=== PATIENT | female | born 1955 | race African-American/Black ===

== ENCOUNTER 2022-07-28 04:10 | Inpatient (IN) | payer MEDICARE, MEDICAID ==
[2022-07-28] VITALS (22 sets, daily range): BP systolic 112–151; BP diastolic 42–85
[~2022-07-28] VITALS: Ht 167.6 cm; Wt 125.2 kg
[2022-07-28] MEDS ORDERED: ONDANSETRON HCL 4MG/2ML INJ IV STA (08:41)
[2022-07-28] MEDS ORDERED: FAMOTIDINE 20MG/2ML VIAL IV STA (08:41)
[2022-07-28 09:43] LABS: BASOPHILS % 0.3 % (0.0-2.0); HEMATOCRIT. 36.6 % (36.0-48.0); LYMPHOCYTES % 23.7 % (20.0-50.0); MEAN CORPUSCULAR HEMOGLOBIN 27.4 pg (28.0-32.0); MEAN CORPUSCULAR VOLUME 83.8 fL (81.0-99.0); MEAN PLATELET VOLUME 7.9 fl (7.4-10.4); MONOCYTES % 5.9 % (2.0-8.0); NEUTROPHILS % 70.1 % (40.0-76.0); PLATELET 203 x1000/uL (130-400); RED BLOOD CELL COUNT 4.37 mill/uL (4.2-5.4); RED CELL DISTRIBUTION WIDTH 15.7 % (11.6-14.6)
[2022-07-28 09:48] LABS: CHLORIDE 106 mEq/L (98-107)
[2022-07-28 10:01] LABS: PROTHROMBIN TIME 10.9 sec (9.6-11.0)
[2022-07-28] MEDS ORDERED: LEVETIRACETAM 500MG PREMIX 100 ML IV ONE (10:45)
[2022-07-28] MEDS: DEXT 5%/LACTATED RINGERS 1,000 ML IV SCH ×2 (11:00→21:38)
[2022-07-28] MEDS ORDERED: NICARDIPINE 40MG/200ML PREMIX 200 ML IV STA (11:21)
[2022-07-28] MEDS ORDERED: MORPHINE SULFATE 2 MG/ML CPJ (NOT FOR IM USE) IV NR (11:30)
[2022-07-28] MEDS ORDERED: MORPHINE SULFATE 2 MG/ML CPJ (NOT FOR IM USE) IV PRN ×3 (11:30→22:00)
[2022-07-28] MEDS ORDERED: NICARDIPINE 50 MG in SODIUM CHLORIDE 0.9% 230 ML IV PRN (11:30)
[2022-07-28] MEDS ORDERED: DEXT 5%/LACTATED RINGERS 1,000 ML IV SCH (11:45)
[2022-07-28] MEDS ORDERED: NALOXONE HCL 0.4MG/ML VIAL IV PRN (11:45)
[2022-07-28] MEDS: PANTOPRAZOLE SODIUM 40 MG/VIAL IV SCH (11:50)
[2022-07-28] MEDS ORDERED: NICARDIPINE 100 MG in SODIUM CHLORIDE 0.9% 60 ML IV PRN (12:00)
[2022-07-28] MEDS ORDERED: LEVETIRACETAM 500MG PREMIX 100 ML IV SCH ×2 (17:00→21:00)
[2022-07-28] MEDS: HYDROCODONE/ACETAMINOPHEN 5/325MG TABLET PO PRN (18:25)
[2022-07-28] MEDS: NICARDIPINE 100 MG in SODIUM CHLORIDE 0.9% 60 ML IV PRN (19:58)
[2022-07-28] MEDS: ONDANSETRON HCL 4MG/2ML INJ IV PRN (22:05)
[2022-07-28] MEDS: LEVETIRACETAM 500MG PREMIX 100 ML IV SCH (22:23)
[2022-07-29] VITALS (85 sets, daily range): BP systolic 114–178; BP diastolic 59–104
[2022-07-29] MEDS: NICARDIPINE 100 MG in SODIUM CHLORIDE 0.9% 60 ML IV PRN ×2 (04:10→11:19)
[2022-07-29 05:35] LABS: BASOPHILS % 0.2 % (0.0-2.0); HEMATOCRIT. 36.5 % (36.0-48.0); HEMOGLOBIN. 11.9 g/dL (12.0-16.0); LYMPHOCYTES % 15.3 % (20.0-50.0); MEAN CORPUSCULAR HEMOGLOBIN 26.9 pg (28.0-32.0); MEAN CORPUSCULAR VOLUME 82.6 fL (81.0-99.0); MEAN PLATELET VOLUME 8.1 fl (7.4-10.4); MONOCYTES % 7.3 % (2.0-8.0); NEUTROPHILS % 77.2 % (40.0-76.0); PLATELET 219 x1000/uL (130-400); RED BLOOD CELL COUNT 4.42 mill/uL (4.2-5.4); RED CELL DISTRIBUTION WIDTH 15.3 % (11.6-14.6)
[2022-07-29 07:06] LABS: CHLORIDE 102 mEq/L (98-107)
[2022-07-29] MEDS: PANTOPRAZOLE SODIUM 40 MG/VIAL IV SCH (08:31)
[2022-07-29] MEDS: LEVETIRACETAM 500MG PREMIX 100 ML IV SCH ×2 (08:31→20:52)
[2022-07-29] MEDS ORDERED: HYDRALAZINE HCL 50MG TABLET PO NR (12:00)
[2022-07-29] MEDS: AMLODIPINE 10MG TABLET PO SCH (12:35)
[2022-07-29] MEDS ORDERED: HYDRALAZINE HCL 50MG TABLET PO SCH (14:00)
[2022-07-29] MEDS: DEXT 5%/LACTATED RINGERS 1,000 ML IV SCH ×2 (16:00→20:04)
[2022-07-29] MEDS: HYDRALAZINE HCL 50MG TABLET PO SCH ×2 (17:44→20:52)
[2022-07-29] MEDS: HYDROCODONE/ACETAMINOPHEN 5/325MG TABLET PO PRN (17:47)
[2022-07-29] MEDS: ONDANSETRON HCL 4MG/2ML INJ IV PRN (20:02)
[2022-07-30] VITALS (45 sets, daily range): BP systolic 116–168; BP diastolic 60–87
[2022-07-30] MEDS: HYDROCODONE/ACETAMINOPHEN 5/325MG TABLET PO PRN ×4 (02:50→21:07)
[2022-07-30] MEDS: ONDANSETRON HCL 4MG/2ML INJ IV PRN (02:53)
[2022-07-30] MEDS: HYDRALAZINE HCL 50MG TABLET PO SCH ×3 (06:01→21:07)
[2022-07-30] MEDS: PANTOPRAZOLE SODIUM 40 MG/VIAL IV SCH (08:53)
[2022-07-30] MEDS: LEVETIRACETAM 500MG PREMIX 100 ML IV SCH ×2 (08:54→20:14)
[2022-07-30] MEDS: AMLODIPINE 10MG TABLET PO SCH (08:54)
[2022-07-30] MEDS: NICARDIPINE 100 MG in SODIUM CHLORIDE 0.9% 60 ML IV PRN ×2 (10:01→17:17)
[2022-07-30] MEDS: LOSARTAN POTASSIUM 100 MG TABLET PO SCH (11:38)
[2022-07-30] MEDS: DEXT 5%/LACTATED RINGERS 1,000 ML IV SCH (12:01)
[2022-07-31] VITALS (21 sets, daily range): BP systolic 108–140; BP diastolic 59–86
[2022-07-31] MEDS: HYDRALAZINE HCL 50MG TABLET PO SCH ×3 (05:15→22:07)
[2022-07-31 06:05] LABS: BASOPHILS % 0.3 % (0.0-2.0); HEMATOCRIT. 36.9 % (36.0-48.0); HEMOGLOBIN. 12.1 g/dL (12.0-16.0); LYMPHOCYTES % 17.7 % (20.0-50.0); MEAN CORPUSCULAR VOLUME 82.1 fL (81.0-99.0); MEAN PLATELET VOLUME 8.1 fl (7.4-10.4); MONOCYTES % 8.5 % (2.0-8.0); NEUTROPHILS % 73.5 % (40.0-76.0); PLATELET 259 x1000/uL (130-400); RED BLOOD CELL COUNT 4.49 mill/uL (4.2-5.4); RED CELL DISTRIBUTION WIDTH 15.4 % (11.6-14.6)
[2022-07-31 06:07] LABS: CHLORIDE 106 mEq/L (98-107)
[2022-07-31] MEDS: DEXT 5%/LACTATED RINGERS 1,000 ML IV SCH ×2 (07:26→22:43)
[2022-07-31] MEDS: PANTOPRAZOLE SODIUM 40 MG/VIAL IV SCH (10:20)
[2022-07-31] MEDS: LEVETIRACETAM 500MG PREMIX 100 ML IV SCH ×2 (10:25→22:06)
[2022-07-31] MEDS: LOSARTAN POTASSIUM 100 MG TABLET PO SCH (10:27)
[2022-07-31] MEDS: AMLODIPINE 10MG TABLET PO SCH (10:27)
[2022-07-31] MEDS: HYDROCODONE/ACETAMINOPHEN 5/325MG TABLET PO PRN ×2 (10:27→22:39)
[2022-07-31] MEDS ORDERED: LACTULOSE 20G/30ML UDC PO NR (14:30)
[2022-07-31] MEDS: SUCRALFATE 1 G/10 ML UDC PO SCH ×2 (17:59→22:06)
[2022-08-01] VITALS: BP 129/63
[2022-08-01 04:00] VITALS: BP 125/63
[2022-08-01] MEDS: HYDROCODONE/ACETAMINOPHEN 5/325MG TABLET PO PRN (04:08)
[2022-08-01] MEDS: HYDRALAZINE HCL 50MG TABLET PO SCH ×2 (06:28→14:58)
[2022-08-01] MEDS: SUCRALFATE 1 G/10 ML UDC PO SCH ×3 (06:28→21:29)
[2022-08-01 08:00] VITALS: BP 124/83
[2022-08-01] MEDS: LOSARTAN POTASSIUM 100 MG TABLET PO SCH (11:24)
[2022-08-01] MEDS: AMLODIPINE 10MG TABLET PO SCH (11:25)
[2022-08-01] MEDS: LEVETIRACETAM 500MG PREMIX 100 ML IV SCH ×2 (11:27→21:30)
[2022-08-01] MEDS: PANTOPRAZOLE SODIUM 40 MG/VIAL IV SCH (11:27)
[2022-08-01 12:00] VITALS: BP 124/63
[2022-08-01] MEDS ORDERED: LORAZEPAM 2MG/ML CPJ IV SCH (12:00)
[2022-08-01 16:00] VITALS: BP 129/64
[2022-08-01] MEDS ORDERED: POTASSIUM CHLORIDE 20MEQ TABLET SR PO NR (19:30)
[2022-08-01 20:00] VITALS: BP 138/76
[2022-08-01] MEDS: ZOLPIDEM TARTRATE 5MG TABLET PO PRN (21:29)
[2022-08-01] MEDS: DOCUSATE SODIUM 250MG CAPSULE PO SCH (21:29)
[2022-08-01] MEDS: HYDRALAZINE HCL 100MG TABLET PO SCH (21:30)
[2022-08-02] VITALS: BP 143/79
[2022-08-02] MEDS: HYDROCODONE/ACETAMINOPHEN 5/325MG TABLET PO PRN (01:17)
[2022-08-02 04:00] VITALS: BP 146/61
[2022-08-02] MEDS: HYDRALAZINE HCL 100MG TABLET PO SCH ×3 (06:17→21:04)
[2022-08-02] MEDS: SUCRALFATE 1 G/10 ML UDC PO SCH ×4 (07:20→21:01)
[2022-08-02 08:00] VITALS: BP 100/55
[2022-08-02] MEDS: LOSARTAN POTASSIUM 100 MG TABLET PO SCH (09:00)
[2022-08-02] MEDS: AMLODIPINE 10MG TABLET PO SCH (09:00)
[2022-08-02] MEDS: LEVETIRACETAM 500MG PREMIX 100 ML IV SCH ×3 (10:15→21:02)
[2022-08-02] MEDS: DOCUSATE SODIUM 250MG CAPSULE PO SCH ×2 (10:16→18:00)
[2022-08-02] MEDS: PANTOPRAZOLE SODIUM 40 MG/VIAL IV SCH (10:16)
[2022-08-02 12:00] VITALS: BP 109/63
[2022-08-02] MEDS ORDERED: LORAZEPAM 1MG TABLET PO NR (12:31)
[2022-08-02 16:00] VITALS: BP 124/70
[2022-08-02 17:04] LABS: BASOPHILS % 0.3 % (0.0-2.0); HEMATOCRIT. 35.3 % (36.0-48.0); HEMOGLOBIN. 11.5 g/dL (12.0-16.0); LYMPHOCYTES % 22.1 % (20.0-50.0); MEAN CORPUSCULAR HEMOGLOBIN 26.8 pg (28.0-32.0); MEAN CORPUSCULAR VOLUME 82.1 fL (81.0-99.0); MEAN PLATELET VOLUME 8.2 fl (7.4-10.4); MONOCYTES % 7.8 % (2.0-8.0); NEUTROPHILS % 69.8 % (40.0-76.0); PLATELET 259 x1000/uL (130-400); RED CELL DISTRIBUTION WIDTH 15.6 % (11.6-14.6)
[2022-08-02 17:21] LABS: CHLORIDE 107 mEq/L (98-107)
[2022-08-02 20:00] VITALS: BP 126/82
[2022-08-02] MEDS: ZOLPIDEM TARTRATE 5MG TABLET PO PRN (21:01)
[2022-08-03] VITALS: BP 130/44
[2022-08-03 04:00] VITALS: BP 128/48
[2022-08-03] MEDS: LORAZEPAM 1MG TABLET PO PRN (04:39)
[2022-08-03] MEDS: HYDRALAZINE HCL 100MG TABLET PO SCH ×3 (05:45→22:10)
[2022-08-03] MEDS: SUCRALFATE 1 G/10 ML UDC PO SCH ×4 (06:28→22:10)
[2022-08-03] MEDS ORDERED: LIDOCAINE HCL 1% 10 MG/ML 10ML VIAL ONE (07:25)
[2022-08-03] MEDS: LEVETIRACETAM 500MG PREMIX 100 ML IV SCH ×2 (09:00→22:10)
[2022-08-03] MEDS: AMLODIPINE 10MG TABLET PO SCH (09:00)
[2022-08-03] MEDS: LOSARTAN POTASSIUM 100 MG TABLET PO SCH (09:00)
[2022-08-03] MEDS: DOCUSATE SODIUM 250MG CAPSULE PO SCH ×2 (09:00→18:20)
[2022-08-03] MEDS: PANTOPRAZOLE SODIUM 40 MG/VIAL IV SCH (09:00)
[2022-08-03] MEDS ORDERED: IOHEXOL-300 100 ML BOTTLE ONE (10:18)
[2022-08-03 12:00] VITALS: BP 131/71
[2022-08-03 16:00] VITALS: BP 129/58
[2022-08-03 18:16] LABS: BASOPHILS % 0.6 % (0.0-2.0); HEMOGLOBIN. 11.4 g/dL (12.0-16.0); LYMPHOCYTES % 21.1 % (20.0-50.0); MEAN CORPUSCULAR HEMOGLOBIN 26.7 pg (28.0-32.0); MEAN CORPUSCULAR VOLUME 82.5 fL (81.0-99.0); MONOCYTES % 7.2 % (2.0-8.0); NEUTROPHILS % 71.1 % (40.0-76.0); PLATELET 242 x1000/uL (130-400); RED BLOOD CELL COUNT 4.25 mill/uL (4.2-5.4); RED CELL DISTRIBUTION WIDTH 15.8 % (11.6-14.6)
[2022-08-03 20:00] VITALS: BP 134/77
[2022-08-03 21:58] LABS: CHLORIDE 105 mEq/L (98-107)
[2022-08-03] MEDS: ZOLPIDEM TARTRATE 5MG TABLET PO PRN (22:10)
[2022-08-04] VITALS: BP 139/83
[2022-08-04] MEDS: LORAZEPAM 1MG TABLET PO PRN (02:20)
[2022-08-04 04:00] VITALS: BP 135/87
[2022-08-04] MEDS ORDERED: POTASSIUM CHLORIDE 20MEQ TABLET SR PO NR (04:45)
[2022-08-04] MEDS: HYDRALAZINE HCL 100MG TABLET PO SCH ×2 (05:49→13:48)
[2022-08-04] MEDS: HYDROCODONE/ACETAMINOPHEN 5/325MG TABLET PO PRN ×2 (05:50→13:18)
[2022-08-04] MEDS: SUCRALFATE 1 G/10 ML UDC PO SCH ×2 (06:20→13:18)
[2022-08-04 08:00] VITALS: BP 129/69
[2022-08-04] MEDS: LEVETIRACETAM 500MG PREMIX 100 ML IV SCH (08:38)
[2022-08-04] MEDS: DOCUSATE SODIUM 250MG CAPSULE PO SCH (08:39)
[2022-08-04] MEDS: LOSARTAN POTASSIUM 100 MG TABLET PO SCH (08:39)
[2022-08-04] MEDS: PANTOPRAZOLE SODIUM 40 MG/VIAL IV SCH (08:40)
[2022-08-04] MEDS: AMLODIPINE 10MG TABLET PO SCH (08:40)
[2022-08-04 12:00] VITALS: BP 132/64
[2022-08-04 16:00] VITALS: BP 122/74
[2022-08-04 17:15] VITALS: BP 122/74
[2022-08-05] MEDS ORDERED: PANTOPRAZOLE 40MG DR TABLET PO SCH (07:20)
[2022-08-05] MEDS ORDERED: LEVETIRACETAM 500MG TABLET PO SCH (09:00)
== END 2022-08-04 18:25 | DRG 65 ==
LOC: ER 04:10 → EDBEDREQ 10:22 → EDBEDREQSVC 10:32 → EDBEDREQ 10:33 → EDBD 10:37 → MICUNO 10:37 → EDBEDREQ 11:10 → EDBEDREQTM 11:10 → 6EST 07-31 05:30
PROVIDERS: ADMIT Internal Medicine; ATTEND Internal Medicine
PROC: 30233K1 Transfusion of Nonautologous Frozen Plasma into Peripheral Vein, Percutaneous Approach (ICD-10-PCS; 2022-07-28)
PROC: 02HV33Z Insertion of Infusion Device into Superior Vena Cava, Percutaneous Approach (ICD-10-PCS; principal; 2022-08-03)
PROC: B5181ZA Fluoroscopy of Superior Vena Cava using Low Osmolar Contrast, Guidance (ICD-10-PCS; 2022-08-03)
PROC: B548ZZA Ultrasonography of Superior Vena Cava, Guidance (ICD-10-PCS; 2022-08-03)
DX: I61.9 Nontraumatic intracerebral hemorrhage, unspecified (principal); Z68.41 Body mass index [BMI] 40.0-44.9, adult; I10 Essential (primary) hypertension; J44.9 Chronic obstructive pulmonary disease, unspecified; E66.9 Obesity, unspecified; E78.00 Pure hypercholesterolemia, unspecified; Z20.822 Contact with and (suspected) exposure to COVID-19; R13.10 Dysphagia, unspecified; F41.9 Anxiety disorder, unspecified; Z74.01 Bed confinement status; Z86.73 Personal history of transient ischemic attack (TIA), and cerebral infarction without residual deficits
CPT/HCPCS: 36415; 36573; 71045; 74018; 74177; 76700; 80048; 80053; 83880; 84450; 84460; 84484; 85025; 86850; 86900; 86927; 87426; 97166; 99291; C1725; C1893; C9113; J1953; J2060; J2270; J2405; J3490; J7050; P9017; Q9967

== ENCOUNTER 2022-10-29 19:56 | Inpatient (IN) | payer MEDICARE, MEDICAID ==
[~2022-10-29] VITALS: Ht 167.6 cm; Wt 123.9 kg
[2022-10-29] MEDS ORDERED: MORPHINE SULFATE 4 MG/ML CPJ (NOT FOR IM USE) IV STA (22:05)
[2022-10-29] MEDS ORDERED: ONDANSETRON HCL 4MG/2ML INJ IV STA (22:05)
[2022-10-29] MEDS ORDERED: SODIUM CHLORIDE 0.9% 1,000 ML IV ONE (22:15)
[2022-10-29 23:05] LABS: BASOPHILS % 0.2 % (0.0-2.0); HEMATOCRIT. 35.1 % (36.0-48.0); HEMOGLOBIN. 11.2 g/dL (12.0-16.0); LYMPHOCYTES % 27.3 % (20.0-50.0); MEAN CORPUSCULAR HEMOGLOBIN 26.6 pg (28.0-32.0); MEAN CORPUSCULAR VOLUME 83.3 fL (81.0-99.0); MEAN PLATELET VOLUME 7.6 fl (7.4-10.4); NEUTROPHILS % 66.5 % (40.0-76.0); PLATELET 225 x1000/uL (130-400); RED BLOOD CELL COUNT 4.21 mill/uL (4.2-5.4); RED CELL DISTRIBUTION WIDTH 17.1 % (11.6-14.6)
[2022-10-29 23:13] LABS: CHLORIDE 113 mEq/L (98-107)
[2022-10-30 01:19] LABS: CLARITY URINE CLEAR (CLEAR); COLOR URINE YELLOW (YELLOW); KETONES URINE NEGATIVE (NEGATIVE); LEUKOCYTE ESTERASE URINE NEGATIVE (NEGATIVE); NITRITE URINE NEGATIVE (NEGATIVE); OCCULT BLOOD URINE 2+ (NEGATIVE); PROTEIN URINE NEGATIVE (NEGATIVE); SPECIFIC GRAVITY URINE 1.026 (1.005-1.030); UROBILINOGEN URINE 0.2 E.U./dL (0.2-1.0)
[2022-10-30] MEDS ORDERED: PANT40TA51 PO (03:44)
[2022-10-30] MEDS ORDERED: HYDR100T31 PO ×2 (03:44→18:24)
[2022-10-30] MEDS ORDERED: AMLO10TA80 PO (03:44)
[2022-10-30] MEDS ORDERED: LEVE500T19 PO (03:44)
[2022-10-30] MEDS ORDERED: SUCR1ORA15 PO (03:44)
[2022-10-30] MEDS ORDERED: DIVA-75 PO (03:44)
[2022-10-30] MEDS ORDERED: QUET50TA23 PO (03:44)
[2022-10-30] MEDS ORDERED: ZOLP5TAB8 PO (03:44)
[2022-10-30] MEDS ORDERED: ESCI-7 PO (03:44)
[2022-10-30] MEDS ORDERED: BUSP10TA4 PO (03:44)
[2022-10-30] MEDS ORDERED: LOSA100T33 PO (03:44)
[2022-10-30 03:50] VITALS: BP_SYST 138; BP_SYST 168; BP_DIAS 72
[2022-10-30] MEDS: LORAZEPAM 1MG TABLET PO PRN ×2 (05:52→16:53)
[2022-10-30] MEDS ORDERED: POTASSIUM CHLORIDE 20MEQ/PACKET PO NR (09:00)
[2022-10-30] MEDS ORDERED: PANTOPRAZOLE 40MG DR TABLET PO SCH (09:00)
[2022-10-30 09:03] VITALS: BP 135/68
[2022-10-30] MEDS: CITALOPRAM HYDROBROMIDE 10MG TABLET PO SCH (09:12)
[2022-10-30] MEDS: BUSPIRONE HCL 10MG TABLET PO SCH ×3 (09:13→16:50)
[2022-10-30] MEDS: AMLODIPINE 10MG TABLET PO SCH (09:13)
[2022-10-30] MEDS: ASPIRIN 81MG TABLET PO SCH (09:14)
[2022-10-30] MEDS: LEVETIRACETAM 500MG TABLET PO SCH ×2 (09:14→16:50)
[2022-10-30] MEDS: DIVALPROEX SODIUM 500MG DR TABLET PO SCH (09:14)
[2022-10-30] MEDS: LOSARTAN POTASSIUM 100 MG TABLET PO SCH (09:14)
[2022-10-30] MEDS: HYDRALAZINE HCL 100MG TABLET PO SCH ×3 (09:14→16:53)
[2022-10-30 12:00] VITALS: BP 140/64
[2022-10-30] MEDS ORDERED: SUCRALFATE 1 GM/10 ML PO (18:23)
[2022-10-30] MEDS ORDERED: LORA-250 PO (18:24)
[2022-10-30] MEDS ORDERED: QUET50TA PO (18:26)
[2022-10-30] MEDS ORDERED: NALOXONE HCL 0.4MG/ML VIAL IV PRN (18:45)
[2022-10-30 20:00] VITALS: BP 109/50
[2022-10-30] MEDS: HYDROCODONE/ACETAMINOPHEN 10/325MG TABLET PO PRN (20:50)
[2022-10-30 21:08] LABS: BASOPHILS % 0.3 % (0.0-2.0); HEMATOCRIT. 37.8 % (36.0-48.0); HEMOGLOBIN. 12.2 g/dL (12.0-16.0); LYMPHOCYTES % 22.9 % (20.0-50.0); MEAN CORPUSCULAR HEMOGLOBIN 27.1 pg (28.0-32.0); MEAN CORPUSCULAR VOLUME 84.1 fL (81.0-99.0); MEAN PLATELET VOLUME 8.1 fl (7.4-10.4); MONOCYTES % 6.6 % (2.0-8.0); NEUTROPHILS % 70.2 % (40.0-76.0); PLATELET 215 x1000/uL (130-400); RED CELL DISTRIBUTION WIDTH 17.4 % (11.6-14.6)
[2022-10-30 21:18] LABS: CHLORIDE 108 mEq/L (98-107)
[2022-10-30 21:24] LABS: HDL CHOLESTEROL 55 mg/dL (40-59); LDL CHOLESTEROL 117 mg/dL (5-100)
[2022-10-30 21:45] LABS: HEPATITIS B SURFACE ANTIGEN NEGATIVE
[2022-10-30] MEDS ORDERED: DIPHENHYDRAMINE 50MG/ML VIAL IV NR (22:15)
[2022-10-30] MEDS ORDERED: LORAZEPAM 2MG/ML CPJ IV NR (22:15)
[2022-10-31 00:06] VITALS: BP 115/56
[2022-10-31 08:12] VITALS: BP 137/46
[2022-10-31] MEDS: AMLODIPINE 10MG TABLET PO SCH (08:39)
[2022-10-31] MEDS: CITALOPRAM HYDROBROMIDE 10MG TABLET PO SCH (08:39)
[2022-10-31] MEDS: ASPIRIN 81MG TABLET PO SCH (08:39)
[2022-10-31] MEDS: HYDRALAZINE HCL 100MG TABLET PO SCH ×3 (08:39→17:00)
[2022-10-31] MEDS: LEVETIRACETAM 500MG TABLET PO SCH ×2 (08:39→16:35)
[2022-10-31] MEDS: PANTOPRAZOLE 40MG DR TABLET PO SCH (08:39)
[2022-10-31] MEDS: DIVALPROEX SODIUM 500MG DR TABLET PO SCH (08:40)
[2022-10-31] MEDS: LOSARTAN POTASSIUM 100 MG TABLET PO SCH (08:40)
[2022-10-31] MEDS: BUSPIRONE HCL 10MG TABLET PO SCH ×3 (08:41→16:35)
[2022-10-31 11:58] VITALS: BP 110/52
[2022-10-31] MEDS: HYDROCODONE/ACETAMINOPHEN 10/325MG TABLET PO PRN ×2 (12:34→20:37)
[2022-10-31 15:53] VITALS: BP 98/57
[2022-10-31 17:00] VITALS: BP 95/61
[2022-10-31 20:00] VITALS: BP_SYST 131; BP_SYST 149; BP_DIAS 55; BP_DIAS 60
[2022-11-01] VITALS: BP_SYST 121; BP_SYST 125; BP_DIAS 51; BP_DIAS 59
[2022-11-01 04:00] VITALS: BP 130/58
[2022-11-01] MEDS: HYDROCODONE/ACETAMINOPHEN 10/325MG TABLET PO PRN (06:43)
[2022-11-01 08:00] VITALS: BP 103/53
[2022-11-01] MEDS: ASPIRIN 81MG TABLET PO SCH (09:24)
[2022-11-01] MEDS: AMLODIPINE 10MG TABLET PO SCH (09:24)
[2022-11-01] MEDS: DIVALPROEX SODIUM 500MG DR TABLET PO SCH (09:24)
[2022-11-01] MEDS: CITALOPRAM HYDROBROMIDE 10MG TABLET PO SCH (09:24)
[2022-11-01] MEDS: BUSPIRONE HCL 10MG TABLET PO SCH ×3 (09:24→17:45)
[2022-11-01] MEDS: PANTOPRAZOLE 40MG DR TABLET PO SCH (09:24)
[2022-11-01] MEDS: HYDRALAZINE HCL 100MG TABLET PO SCH ×3 (09:25→17:45)
[2022-11-01] MEDS: LEVETIRACETAM 500MG TABLET PO SCH ×2 (09:25→17:44)
[2022-11-01] MEDS: LOSARTAN POTASSIUM 100 MG TABLET PO SCH (09:25)
[2022-11-01 12:00] VITALS: BP 104/65
[2022-11-01] MEDS: METHYLPREDNISOLONE SOD SUCC 1,000 MG in DEXT 5% WATER 100 ML IV SCH (12:53)
[2022-11-01 16:00] VITALS: BP 110/67
[2022-11-01 20:00] VITALS: BP 134/63
[2022-11-01] MEDS: ZOLPIDEM TARTRATE 5MG TABLET PO PRN (23:06)
[2022-11-02] VITALS: BP 120/77
[2022-11-02] MEDS: HYDROCODONE/ACETAMINOPHEN 10/325MG TABLET PO PRN ×2 (00:44→10:53)
[2022-11-02] MEDS: LORAZEPAM 1MG TABLET PO PRN (01:16)
[2022-11-02 04:00] VITALS: BP 157/84
[2022-11-02 08:00] VITALS: BP 139/74
[2022-11-02] MEDS: METHYLPREDNISOLONE SOD SUCC 1,000 MG in DEXT 5% WATER 100 ML IV SCH (10:51)
[2022-11-02] MEDS: DIVALPROEX SODIUM 500MG DR TABLET PO SCH (10:51)
[2022-11-02] MEDS: CITALOPRAM HYDROBROMIDE 10MG TABLET PO SCH (10:52)
[2022-11-02] MEDS: LOSARTAN POTASSIUM 100 MG TABLET PO SCH (10:52)
[2022-11-02] MEDS: ASPIRIN 81MG TABLET PO SCH (10:52)
[2022-11-02] MEDS: FAMOTIDINE 20MG TABLET PO SCH ×2 (10:53→18:26)
[2022-11-02] MEDS: BUSPIRONE HCL 10MG TABLET PO SCH ×3 (10:53→18:26)
[2022-11-02] MEDS: LEVETIRACETAM 500MG TABLET PO SCH ×2 (10:53→18:26)
[2022-11-02] MEDS: HYDRALAZINE HCL 100MG TABLET PO SCH ×3 (10:54→17:00)
[2022-11-02] MEDS: AMLODIPINE 10MG TABLET PO SCH (10:54)
[2022-11-02 12:00] VITALS: BP 130/69
[2022-11-02 16:00] VITALS: BP 101/48
[2022-11-02 20:00] VITALS: BP 139/84
[2022-11-02] MEDS: ZOLPIDEM TARTRATE 5MG TABLET PO PRN (21:45)
[2022-11-03] VITALS: BP 116/83
[2022-11-03 04:00] VITALS: BP 117/82
[2022-11-03] MEDS: HYDROCODONE/ACETAMINOPHEN 10/325MG TABLET PO PRN (06:48)
[2022-11-03 08:00] VITALS: BP 125/63
[2022-11-03] MEDS: ASPIRIN 81MG TABLET PO SCH (09:30)
[2022-11-03] MEDS: METHYLPREDNISOLONE SOD SUCC 1,000 MG in DEXT 5% WATER 100 ML IV SCH (09:30)
[2022-11-03] MEDS: LOSARTAN POTASSIUM 100 MG TABLET PO SCH (09:31)
[2022-11-03] MEDS: BUSPIRONE HCL 10MG TABLET PO SCH ×3 (09:32→17:16)
[2022-11-03] MEDS: DIVALPROEX SODIUM 500MG DR TABLET PO SCH (09:32)
[2022-11-03] MEDS: CITALOPRAM HYDROBROMIDE 10MG TABLET PO SCH (09:33)
[2022-11-03] MEDS: AMLODIPINE 10MG TABLET PO SCH (09:37)
[2022-11-03] MEDS: HYDRALAZINE HCL 100MG TABLET PO SCH ×3 (09:37→17:14)
[2022-11-03] MEDS: LEVETIRACETAM 500MG TABLET PO SCH ×2 (09:38→17:14)
[2022-11-03] MEDS: FAMOTIDINE 20MG TABLET PO SCH ×2 (09:41→17:14)
[2022-11-03 12:00] VITALS: BP 101/52
[2022-11-03 16:00] VITALS: BP 133/68
[2022-11-03] MEDS: LORAZEPAM 1MG TABLET PO PRN (17:14)
[2022-11-03 20:00] VITALS: BP 132/75
[2022-11-03] MEDS: ZOLPIDEM TARTRATE 5MG TABLET PO PRN (23:50)
[2022-11-04] VITALS: BP 123/99
[2022-11-04 04:00] VITALS: BP 143/82
[2022-11-04 08:08] VITALS: BP 140/94
[2022-11-04] MEDS: AMLODIPINE 10MG TABLET PO SCH (08:45)
[2022-11-04] MEDS: ASPIRIN 81MG TABLET PO SCH (08:45)
[2022-11-04] MEDS: BUSPIRONE HCL 10MG TABLET PO SCH (08:45)
[2022-11-04] MEDS: DIVALPROEX SODIUM 500MG DR TABLET PO SCH (08:46)
[2022-11-04] MEDS: HYDRALAZINE HCL 100MG TABLET PO SCH ×3 (08:46→16:22)
[2022-11-04] MEDS: CITALOPRAM HYDROBROMIDE 10MG TABLET PO SCH (08:46)
[2022-11-04] MEDS: LEVETIRACETAM 500MG TABLET PO SCH ×2 (08:46→16:21)
[2022-11-04] MEDS: FAMOTIDINE 20MG TABLET PO SCH ×2 (08:46→16:21)
[2022-11-04] MEDS: LOSARTAN POTASSIUM 100 MG TABLET PO SCH (08:46)
[2022-11-04 12:15] VITALS: BP 141/74
[2022-11-04] MEDS: HYDROCODONE/ACETAMINOPHEN 10/325MG TABLET PO PRN ×2 (12:41→23:37)
[2022-11-04 15:47] VITALS: BP 117/64
[2022-11-04] MEDS: LORAZEPAM 1MG TABLET PO PRN (16:21)
[2022-11-04 20:00] VITALS: BP 126/74
[2022-11-04] MEDS ORDERED: CLONIDINE 0.1MG TABLET PO PRN (23:30)
[2022-11-05] VITALS: BP 185/74
[2022-11-05] MEDS: LORAZEPAM 1MG TABLET PO PRN ×2 (01:43→16:58)
[2022-11-05 04:00] VITALS: BP 133/71
[2022-11-05 08:00] VITALS: BP 138/68
[2022-11-05] MEDS: ASPIRIN 81MG TABLET PO SCH (08:31)
[2022-11-05] MEDS: LEVETIRACETAM 500MG TABLET PO SCH ×2 (08:31→18:03)
[2022-11-05] MEDS: AMLODIPINE 10MG TABLET PO SCH (08:31)
[2022-11-05] MEDS: LOSARTAN POTASSIUM 100 MG TABLET PO SCH (08:31)
[2022-11-05] MEDS: FAMOTIDINE 20MG TABLET PO SCH ×2 (08:31→18:03)
[2022-11-05] MEDS: DIVALPROEX SODIUM 500MG DR TABLET PO SCH (08:31)
[2022-11-05] MEDS: HYDRALAZINE HCL 100MG TABLET PO SCH ×3 (08:31→18:03)
[2022-11-05] MEDS: CITALOPRAM HYDROBROMIDE 10MG TABLET PO SCH (08:32)
[2022-11-05 12:10] VITALS: BP 124/69
[2022-11-05] MEDS: HYDROCODONE/ACETAMINOPHEN 10/325MG TABLET PO PRN (13:03)
[2022-11-05 14:40] VITALS: BP 124/69
[2022-11-05 15:25] VITALS: BP 109/56
[2022-11-05] MEDS ORDERED: NALOXONE HCL 0.4MG/ML VIAL IV PRN (16:30)
== END 2022-11-05 19:28 | DRG 123 ==
LOC: ER 19:56 → MICUSO 10-30 03:04 → 7WST 10-30 04:29
PROVIDERS: ADMIT Internal Medicine; ATTEND Internal Medicine
DX: H46.9 Unspecified optic neuritis (principal); E87.0 Hyperosmolality and hypernatremia; G82.20 Paraplegia, unspecified; I69.351 Hemiplegia and hemiparesis following cerebral infarction affecting right dominant side; Q21.12 Patent foramen ovale; Z68.41 Body mass index [BMI] 40.0-44.9, adult; K57.90 Diverticulosis of intestine, part unspecified, without perforation or abscess without bleeding; E66.01 Morbid (severe) obesity due to excess calories; E78.5 Hyperlipidemia, unspecified; E87.6 Hypokalemia; K21.9 Gastro-esophageal reflux disease without esophagitis; R47.1 Dysarthria and anarthria; J44.9 Chronic obstructive pulmonary disease, unspecified; I10 Essential (primary) hypertension; Z74.01 Bed confinement status; Z86.718 Personal history of other venous thrombosis and embolism; Z86.711 Personal history of pulmonary embolism
CPT/HCPCS: 36415; 71045; 74176; 80048; 80053; 80061; 81003; 83605; 85025; 85651; 86803; 87340; 93005; 93970; 97162; 99285; C1893; J1200; J2060; J2270; J2405; J2930; J7030; J7060